=== PATIENT | female | born 1985 | race Caucasian/White ===

== ENCOUNTER 2016-09-14 16:25 | Emergency (ER) | payer BC ==
--- NOTE | 2016-09-20 14:38 | ER ---
ADMIT: 09/14/2016 RM/LOC: ER [facility] MR#: [id number] [id number] MELVI GLORIA [address] [place] [address] Emergency Room Report SEX: F AGE: 30 : 1985 DATE: 09/14/2016 ADDENDUM: CHIEF COMPLAINT: Suprapubic pain. HISTORY OF PRESENT ILLNESS: This is a 30-year-old who has horrible menstrual period. She just started menstruating at 11:00 today. She said she had a little bit more pain, so she came into the ER. COURSE IN THE EMERGENCY ROOM: Urine and preg test were done. Her urine just showed 198 red blood cells, but no signs of infection. test was negative. PAST MEDICAL HISTORY: She has had a history of ovarian cyst. She has had a cholecystectomy. MEDICATIONS: None. ALLERGIES: NO KNOWN ALLERGIES. SOCIAL HISTORY: Denies any drug or alcohol use, but smokes a half pack of tobacco daily. PHYSICAL EXAMINATION: VITAL SIGNS: Blood pressure is 140/86, pulse is 81, respirations 16, temperature is 97.6 tympanic, and saturation of oxygen 95% on room air. GENERAL APPEARANCE: Really no acute distress and alert. HEENT: Pharynx is moist. No tonsillar swelling or exudate. HEART: Regular rate and rhythm. LUNGS: CTA bilateral. ABDOMEN: Soft, but tenderness suprapubic. No rebound or guarding. SKIN: Normal color, warm, and dry. BACK: No CVA tenderness. DISPOSITION: I am letting her go home, having her take Motrin and Tylenol for pain. Push fluids. Follow up with her PCP if worsen. ANITHA Galeas / Timmy Mares MD / wesley JOB #: [id number] CC: Timmy Mares MD, Attending Physician Silvio Betancourt MD, Family Physician
== END 2016-09-14 21:19 | disposition home or self-care (01) ==
LOC: ER 16:25
DX: N92.0 Excessive and frequent menstruation with regular cycle (principal); F17.210 Nicotine dependence, cigarettes, uncomplicated